=== PATIENT | female | born 1960 | race Caucasian/White ===

== ENCOUNTER 2016-09-19 15:49 | Observation (INO) | payer BC, OTHER ==
[~2016-09-19] VITALS: Ht 160 cm; Wt 81.9 kg
[2016-09-19] VITALS (7 sets, daily range): BP systolic 142–205; BP diastolic 79–118; PULSE 62–72; RESP 17–20; TEMP 98.2–98.5; O2SAT 97–100
[~2016-09-19 15:49] MED LIST: CEFT500T PO; CLON.5 PO; FERRF325 PO; FIORCAP6 PO; GLUC2.5T7 PO; LORT7.5T3 PO; PRIN10TA PO; TOPI200 PO
[2016-09-19] MEDS ORDERED: BUTA1CAP2 PO (16:15)
[2016-09-19] MEDS ORDERED: CLON.5 PO (16:15)
[2016-09-19] MEDS ORDERED: TOPI1TAB31 PO (16:15)
[2016-09-19] MEDS ORDERED: METF1000 PO (16:15)
[2016-09-19] MEDS ORDERED: ASPI81CH CHEW (16:15)
[2016-09-19] MEDS ORDERED: ATEN25TA PO (16:15)
[2016-09-19] MEDS ORDERED: PRIS100T PO (16:15)
[2016-09-19] MEDS ORDERED: NAPR500T PO (16:15)
--- NOTE | 2016-09-19 16:21 | PD ---
HPI Chief Complaint: Chest Pain Time Seen by Provider: 16:09 Travel History International Travel<30 days: No Contact w/Intl Traveler<30days: No Traveled to known affect area: No History of Present Illness HPI This patient complains of chest pain. Location is center sternum. There was some radiation toward both left and right shoulder. She had chest pain yesterday that she ignored. She had further chest pain today and decided to come here for evaluation. She is currently pain-free. No shortness of breath or fever or cough or chest wall injury. She denies personal history of cardiac disease. She had a stress test many years ago that was negative. Symptoms severity is moderate. No alleviating factors. Duration is 2 days PFSH Past Medical History Asthma: Yes (15 YEARS) Anxiety: Yes Diabetes: Yes Patient Takes Glucophage: Yes Diminished Hearing: No Genitourinary: No Hypertension: Yes (MILD HYPERTENSION 10 YEARS) Musculoskeletal: No Reproductive: Yes (ABNORMAL THICKENING OF ENDOMETRIUM) Migraines: Yes Tetanus Vaccination: > 5 Years Influenza Vaccination: No ?: Not Past Surgical History Section: Yes (X 2) Cholecystectomy: Yes Eye Surgery: Yes (CORNEAL SURGERY?) Genitourinary Surgery: Yes (CHOLECSTECOMY 1991) Gynecologic Surgery: Yes (2 SECTION 1985 AND 1987) Hysterectomy: Yes Social History Alcohol Use: No Tobacco Use: No Substance Use: No Allergies-Medications (Allergen,Severity, Reaction): Coded Allergies: Metformin (Verified Allergy, Intermediate, 09/19/16) Zithromax (Verified Allergy, Mild, 09/19/16) Reported Meds & Prescriptions Reported Meds & Active Scripts Active Reported Fioricet-Codeine (Bosizvtkfp-Fnndtfashaafw-Qwmqpzxv-Codeine) 50-481-83-30 Mg Cap 1-2 Cap PO Q4H PRN Do not exceed 6 capsules/day. Aspirin 81 Mg Chew 325 Mg CHEW DAILY Pristiq 24 HR (Desvenlafaxine ER 24 HR) 100 Mg Tab 100 Mg PO DAILY Naproxen 500 Mg Tab 500 Mg PO BID Klonopin (Clonazepam) 0.5 Mg Tab 0.5 Mg PO DIRECTED PRN Topiramate 100 Mg Tab 100 Mg PO BID Atenolol 25 Mg Tab 1.5 Tab PO DAILY Metformin (Metformin HCl) 1,000 Mg Tab 1,000 Mg PO DAILY With a meal Review of Systems General / Constitutional: No: Fever Eyes: No: Visual changes HENT: No: Headaches Cardiovascular: Positive: Chest Pain or Discomfort Respiratory: No: Shortness of Breath Gastrointestinal: No: Abdominal Pain Genitourinary: No: Dysuria Musculoskeletal: No: Pain Skin: No Rash Neurologic: No: Weakness Psychiatric: No: Depression Endocrine: No: Polydipsia Hematologic/Lymphatic: No: Easy Bruising Physical Exam Narrative GENERAL: Well-nourished, well-developed patient in no apparent distress. SKIN: Warm and dry. HEAD: Atraumatic. Normocephalic. EYES: Pupils equal and round. No scleral icterus. No injection or drainage. ENT: No nasal bleeding or discharge. Mucous membranes pink and moist. NECK: Trachea midline. No JVD. CARDIOVASCULAR: Regular rate and rhythm. No murmur appreciated. RESPIRATORY: No accessory muscle use. Clear to auscultation. Breath sounds equal bilaterally. GASTROINTESTINAL: Abdomen soft, non-tender, nondistended. Hepatic and splenic margins not palpable. MUSCULOSKELETAL: No obvious deformities. No clubbing. No cyanosis. No edema. NEUROLOGICAL: Awake and alert. No obvious cranial nerve deficits. Motor grossly within normal limits. Normal speech. PSYCHIATRIC: Appropriate mood and affect; insight and judgment normal. Data Data Last Documented VS Vital Signs Date Time Temp Pulse Resp B/P Pulse Ox O2 Delivery O2 Flow Rate FiO2 09/19/16 16:29 63 17 169/92 97 Room Air 09/19/16 16:07 98.5 Orders Basic Metabolic Panel (Bmp) (09/19/16 16:18) Ckmb (Isoenzyme) Profile (09/19/16 16:18) Complete Blood Count With Diff (09/19/16 16:18) Prothrombin Time / Inr (Pt) (09/19/16 16:18) Act Partial Throm Time (Ptt) (09/19/16 16:18) Troponin I (09/19/16 16:18) Chest, Single Ap (09/19/16 16:18) Ecg Monitoring (09/19/16 16:18) Iv Access Insert/Monitor (09/19/16 16:18) Oximetry (09/19/16 16:18) Sodium Chloride 0.9% Flush (Ns Flush) (09/19/16 16:30) Clonidine (Catapres) (09/19/16 16:30) Admit Order (Ed Use Only) (09/19/16 17:18) Labs Laboratory Tests Test 09/19/16 16:20 White Blood Count 6.6 TH/MM3 Red Blood Count 4.74 MIL/MM3 Hemoglobin 13.6 GM/DL Hematocrit 41.1 % Mean Corpuscular Volume 86.6 FL Mean Corpuscular Hemoglobin 28.8 PG Mean Corpuscular Hemoglobin 33.2 % Concent Red Cell Distribution Width 13.3 % Platelet Count 308 TH/MM3 Mean Platelet Volume 6.8 FL Neutrophils (%) (Auto) 74.8 % Lymphocytes (%) (Auto) 16.8 % Monocytes (%) (Auto) 7.6 % Eosinophils (%) (Auto) 0.6 % Basophils (%) (Auto) 0.2 % Neutrophils # (Auto) 5.0 TH/MM3 Lymphocytes # (Auto) 1.1 TH/MM3 Monocytes # (Auto) 0.5 TH/MM3 Eosinophils # (Auto) 0.0 TH/MM3 Basophils # (Auto) 0.0 TH/MM3 CBC Comment DIFF FINAL Differential Comment Prothrombin Time 10.0 SEC Prothromb Time International 0.9 RATIO Ratio Activated Partial 25.4 SEC Thromboplast Time Sodium Level 144 MEQ/L Potassium Level 3.4 MEQ/L Chloride Level 107 MEQ/L Carbon Dioxide Level 27.2 MEQ/L Anion Gap 10 MEQ/L Blood Urea Nitrogen 16 MG/DL Creatinine 0.69 MG/DL Estimat Glomerular Filtration 88 ML/MIN Rate Random Glucose 210 MG/DL Calcium Level 8.8 MG/DL Total Creatine Kinase 40 U/L Troponin I LESS THAN 0.02 NG/ML MDM Medical Decision Making Medical Screen Exam Complete: Yes Emergency Medical Condition: Yes Medical Record Reviewed: Yes Differential Diagnosis Differential diagnosis includes IL, angina, pericarditis, pleurisy, GERD, anxiety. Narrative Course I have reviewed the patient's electronic medical record. IV placed I reviewed the EKG which shows sinus rhythm but no ST elevation or ectopy I reviewed the chest x-ray which is normal Extended cardiac monitoring shows sinus rhythm without ectopy CBC is normal Metabolic profile is normal CK is normal Troponin is normal Coagulation studies are normal She took an aspirin prior to arrival Blood pressure is accelerated at 212 systolic so I gave her dose of clonidine and will reassess. Blood pressure recheck 169 systolic Patient is multiple risk factors and will be a 23 hour observation in the chest pain center to rule out cardiac cause of her symptoms. Call has been placed to hospitalist to discuss Diagnosis Primary Impression: Precordial chest pain Admitting Information Admitting Physician Requests: Observation Gene Farmer MD Sep 19, 2016 16:21
[2016-09-19] MEDS ORDERED: SODIUM CHLORIDE 0.9% FLUSH 5 ML FLUSH IVF PRN ×2 (16:30→17:45)
[2016-09-19] MEDS ORDERED: cloNIDine HCL 0.2 MG TAB PO ONE (16:30)
[2016-09-19 16:47] LABS: BASOPHIL % 0.2 % (0.0-2.0); EOSINOPHIL % 0.6 % (0.0-4.0); HEMATOCRIT 41.1 % (35.0-46.0); HEMO FLAGS DIFF FINAL; LYMPH % 16.8 % (9.0-44.0); LYMPHOCYTE # 1.1 TH/MM3 (1.0-4.8); MEAN CELL VOLUME 86.6 FL (80.0-100.0); MEAN CORPUSCULAR HEMOGLOBIN 28.8 PG (27.0-34.0); MEAN CORPUSCULAR HGB CONC 33.2 % (32.0-36.0); MONO % 7.6 % (0.0-8.0); NEUT % 74.8 % (16.0-70.0); PLATELET COUNT 308 TH/MM3 (150-450); RED BLOOD COUNT 4.74 MIL/MM3 (4.00-5.30); RED CELL DISTRIBUTION WIDTH 13.3 % (11.6-17.2); WHITE BLOOD COUNT 6.6 TH/MM3 (4.0-11.0)
--- NOTE | 2016-09-19 16:49 | RADHPO ---
EXAM DATE/TIME: 09/19/2016 16:37 [facility] COMPARISON: No previous studies available for comparison. INDICATIONS : Chest pain. MEDICAL HISTORY : None. SURGICAL HISTORY : None. ENCOUNTER: Initial ACUITY: 2 days PAIN SCORE: 8/10 LOCATION: Bilateral chest FINDINGS: A single view of the chest demonstrates the lungs to be symmetrically aerated without evidence of mas s, infiltrate or effusion. The cardiomediastinal contours are unremarkable. Osseous structures are intact. CONCLUSION: No acute disease. Ramiro Cottrell MD on September 19, 2016 at 16:47 Board Certified Radiologist. This report was verified electronically.
[2016-09-19 16:54] LABS: CHLORIDE 107 MEQ/L (98-107); POTASSIUM 3.4 MEQ/L (3.5-5.1); SODIUM (NA) 144 MEQ/L (136-145)
[2016-09-19 16:57] LABS: ANION GAP 10 MEQ/L (5-15); BICARBONATE 27.2 MEQ/L (21.0-32.0); BLOOD UREA NITROGEN 16 MG/DL (7-18)
[2016-09-19 16:58] LABS: APTT (PATIENT) 25.4 SEC (24.3-30.1); INTERNATIONAL NORMALIZED RATIO 0.9 RATIO
[2016-09-19 17:00] LABS: GLOMERULAR FILTRATION RATE 88 ML/MIN (>89)
[2016-09-19 17:12] LABS: CREATINE KINASE 40 U/L (26-192)
[2016-09-19] MEDS ORDERED: NITROGLYCERIN 0.4 MG SL 25 TABS/BTL SL PRN (17:45)
[2016-09-19] MEDS ORDERED: cloNIDine HCL 0.1 MG TAB PO PRN (18:00)
[2016-09-19] MEDS ORDERED: GLUCAGON 1 MG/ML VIAL OTHER PRN (18:00)
[2016-09-19] MEDS ORDERED: DEXTROSE 50% IN WATER 50 ML VIAL(D50) IV PUSH PRN (18:00)
[2016-09-19] MEDS: TOPIRAMATE 100 MG TAB PO SCH (20:41)
[2016-09-19] MEDS: SODIUM CHLORIDE 0.9% FLUSH 5 ML FLUSH IVF SCH (20:44)
[2016-09-19] MEDS: INSULIN ASPART SUPPLEMENTAL SCALE SQ SCH (20:44)
[2016-09-20] VITALS: BP 148/89; PULSE 54; RESP 20; TEMP 97.8; O2SAT 99
[2016-09-20 04:00] VITALS: BP 157/87; PULSE 60; RESP 20; TEMP 96.8; O2SAT 97
[2016-09-20] MEDS: INSULIN ASPART SUPPLEMENTAL SCALE SQ SCH ×3 (06:47→16:00)
--- NOTE | 2016-09-20 06:49 | HHI.HP ---
[facility] Service [facility] Primary Care Physician No Primary Care Physician Admission Diagnosis chest pain Diagnoses: (1) Chest pain Diagnosis: Principal (2) Accelerated hypertension Diagnosis: Principal (3) Diabetes Diagnosis: Secondary Chief Complaint: Chest pain Travel History International Travel<30 Days: No Contact w/Intl Traveler <30 Da: No Traveled to Known Affected Are: No History of Present Illness 56-year-old female with known history of hypertension, diabetes, migraine cephalgia, anxiety who presented to the hospital because of chest pain. Patient states that the pain is been intermittent for the last 3 days. She indicates that whenever she exerts herself she develops a pain in the mid part of her chest radiating into the left shoulder with associated diaphoresis. She denies any nausea, vomiting, shortness of breath, dyspnea. She states the pain lasted for probably 5 minutes and resolved on its own whenever she rests. She describes the pain as a 7/10 on a pain scale. At the present time she is asymptomatic. Patient was evaluated in emergency department and found to have accelerated hypertension with blood pressure 205/118. Patient given clonidine with improvement of her blood pressure. Patient recommended observation chest pain center Review of Systems Constitutional: COMPLAINS OF: Diaphoretic episodes, DENIES: Fatigue, Fever, Weight gain, Weight loss, Chills, Dizziness, Change in appetite, Night Sweats Eyes: DENIES: Blurred vision, Diplopia, Eye inflammation, Eye pain, Vision loss , Double Vision Ears, nose, mouth, throat: DENIES: Vertigo, Nasal discharge, Throat pain, Ear Pain, Running Nose, Sinus Pain Respiratory: DENIES: Apneas, Cough, Snoring, Wheezing, Hemoptysis, Sputum production, Shortness of breath Cardiovascular: COMPLAINS OF: Chest pain, DENIES: Palpitations, Syncope, Dyspnea on Exertion, Lower Extremity Edema, Orthopnea Gastrointestinal: DENIES: Abdominal pain, Black stools, Bloody stools, Constipation, Diarrhea, Nausea, Vomiting, Difficulty Swallowing, Anorexia Neurologic: DENIES: Abnormal gait, Headache, Localized weakness, Paresthesias, Seizures, Speech Problems, Tremor, Poor Balance Psychiatric: COMPLAINS OF: Anxiety, DENIES: Confusion, Mood changes, Depression, Hallucinations, Agitation, Suicidal Ideation, Homicidal Ideation Past Family Social History Past Medical History Hypertension Hyperlipidemia Diabetes Migraine Anxiety, panic attacks Past Surgical History Corneal surgery Cholecystectomy Partial hysterectomy Reported Medications Reported Meds & Active Scripts Active Reported Fioricet-Codeine (Ghtepuinyk-Zkrndxjlofgfn-Nlqtzfgb-Codeine) 68-405-58-30 Mg Cap 1-2 Cap PO Q4H PRN Do not exceed 6 capsules/day. Aspirin 81 Mg Chew 325 Mg CHEW DAILY Pristiq 24 HR (Desvenlafaxine ER 24 HR) 100 Mg Tab 100 Mg PO DAILY Naproxen 500 Mg Tab 500 Mg PO BID Klonopin (Clonazepam) 0.5 Mg Tab 0.5 Mg PO DIRECTED PRN Topiramate 100 Mg Tab 100 Mg PO BID Atenolol 25 Mg Tab 1.5 Tab PO DAILY Metformin (Metformin HCl) 1,000 Mg Tab 1,000 Mg PO DAILY With a meal Allergies: Coded Allergies: Metformin (Verified Allergy, Intermediate, 09/19/16) Zithromax (Verified Allergy, Mild, 09/19/16) Family History Reviewed and unremarkable Social History Patient denies any tobacco, alcohol or illicit drugs Physical Exam Vital Signs Vital Signs Date Time Temp Pulse Resp B/P Pulse Ox O2 Delivery O2 Flow Rate FiO2 09/20/16 04:00 96.8 60 20 157/87 97 09/20/16 00:00 97.8 54 20 148/89 99 09/19/16 23:20 97 21 09/19/16 20:00 62 09/19/16 20:00 98.2 63 20 142/87 97 09/19/16 17:54 98 21 09/19/16 17:34 62 17 160/79 100 Room Air 09/19/16 16:29 63 17 169/92 97 Room Air 09/19/16 16:25 100 Room Air 09/19/16 16:07 98.5 72 17 205/118 98 Room Air 09/19/16 16:07 Room Air Physical Exam GENERAL: Well-developed, well-nourished, in no acute distress. alert and orientated HEENT: Head is normocephalic without any lesions or masses noted. Facial features are symmetric. Eyes: Pupils equal round reactive to light. Extraocular muscles are intact. Conjunctivae were clear. Oropharyngeal: Pharynx without any erythema edema. Tongue is midline without deviation. Buccal mucosa is moist without any masses or lesions NECK: Supple without any masses. Trachea midline no deviation. No JVD, no bruits are appreciated CARDIAC: Regular rhythm, regular rate. S1/S2 are heard. No murmurs gallops or rubs. LUNGS: Clear to auscultation bilaterally. No wheeze, rhonchi or rales. No use of accessory muscles on inspiration or expiration. ABDOMEN: Soft, nontender. Nondistended. Bowel sounds heard in all 4 quadrants. No organomegaly or masses. Negative rebound, negative guarding EXTREMITIES: No edema, pulses are equal bilaterally. No cyanosis or clubbing NEUROLOGY: Mood and affect appear appropriate. Cranial nerves II through XII grossly intact. Muscle strength 5/5 in upper and lower extremities bilaterally. Deep tendon reflexes are 2+ in upper and lower extremities bilaterally. Laboratory Laboratory Tests Test 09/19/16 09/19/16 09/20/16 16:20 20:30 02:15 White Blood Count 6.6 Red Blood Count 4.74 Hemoglobin 13.6 Hematocrit 41.1 Mean Corpuscular Volume 86.6 Mean Corpuscular Hemoglobin 28.8 Mean Corpuscular Hemoglobin 33.2 Concent Red Cell Distribution Width 13.3 Platelet Count 308 Mean Platelet Volume 6.8 Neutrophils (%) (Auto) 74.8 Lymphocytes (%) (Auto) 16.8 Monocytes (%) (Auto) 7.6 Eosinophils (%) (Auto) 0.6 Basophils (%) (Auto) 0.2 Neutrophils # (Auto) 5.0 Lymphocytes # (Auto) 1.1 Monocytes # (Auto) 0.5 Eosinophils # (Auto) 0.0 Basophils # (Auto) 0.0 CBC Comment DIFF FINAL Differential Comment Prothrombin Time 10.0 Prothromb Time International 0.9 Ratio Activated Partial 25.4 Thromboplast Time Sodium Level 144 Potassium Level 3.4 Chloride Level 107 Carbon Dioxide Level 27.2 Anion Gap 10 Blood Urea Nitrogen 16 Creatinine 0.69 Estimat Glomerular Filtration 88 Rate Random Glucose 210 Calcium Level 8.8 Total Creatine Kinase 40 32 34 Troponin I LESS THAN 0.02 0.02 0.02 Result Diagram: 09/19/16 1620 09/19/16 1620 Imaging Last Impressions Chest X-Ray 09/19/16 1618 Signed Impressions: Service Date/Time: Monday, September 19, 2016 16:37 - CONCLUSION: No acute disease. Ramiro Cottrell MD Assessment and Plan Assessment and Plan Chest pain Patient with increased risk factors to include age, hypertension, hypokalemia, diabetes Serial cardiac enzymes were performed and reviewed by myself, patient has been ruled out for any acute coronary event Serial EKGs have been performed and reviewed by myself, no changes noted Exercise stress test was performed, however, she has not able to perform until completion. She only was able to do 83% of goal. Nuclear stress test was performed which was negative for any underlying ischemia Continue aspirin and nitroglycerin as needed Accelerated hypertension Resume home medication atenolol 25 mg 1.5 tablets daily Clonidine as needed Diabetes Metformin been held at this time Accu-Cheks with sliding scale insulin Anxiety/panic attacks Home medications have been continued Migraine cephalgia Topamax and Fioricet have been continued DVT prevention Low risk, early ambulation Written by Gene Jimenez PA-C, acting as scribe for Dr. Tripathi on 09/20/2016 at 1050. The documentation accurately reflects the work and decisions performed face-to- face by Dr. Tripathi on 09/20/2016 at 1050. Discharge disposition Discharge home in stable condition if stress test is negative Activity: Ad beck. Diet: Healthy heart diet/diabetic diet Medications per medication reconciliation Follow-up with primary medical doctor in one week Problem Qualifiers (1) Chest pain: Qualified Code: R07.9 - Chest pain, unspecified type (2) Diabetes: Qualified Code: E11.8 - Type 2 diabetes mellitus with complication, without long-term current use of insulin Gene Jimenez Sep 20, 2016 06:49
[2016-09-20 08:00] VITALS: BP 169/98; PULSE 76; RESP 18; TEMP 97; O2SAT 99
[2016-09-20 08:05] VITALS: PULSE 59
[2016-09-20 08:38] VITALS: BP 156/92; PULSE 59; RESP 16; TEMP 98.2; O2SAT 97
[2016-09-20] MEDS ORDERED: ATENOLOL 25 MG TAB PO SCH (09:00)
[2016-09-20] MEDS ORDERED: ASPIRIN EC 325 MG TABEC PO SCH (09:00)
--- NOTE | 2016-09-20 09:48 | TR ---
Date Performed: 09/20/2016 Time Performed: 09:03:17 DOCTOR: Kaley Deras DRUG LIST: CLINICAL HISTORY: CHEST PAIN REASON FOR TEST: Angina REASON FOR ENDING: Fatigue/Weakness OBSERVATION: Chest Pain: Limiting CONCLUSION: Patient coulod not tolerate GODWIN protocol, had to reduce speed near end of testing, patient could not continue to completion, because of weakness, fatigue. Total Exercise Time=7:00 Max imum HK=259 % Max HR Achieved=82.0 Maximum XL=188/92 During exercise portion of testing, patient did have some chest pain, no signs of ischemia during pain. patient had quick upsloping ST segments.recov art period, patient was asymptomatic, HR and BP returned to baseline COMMENTS:
[2016-09-20] MEDS ORDERED: PNEUMOCOCCAL POLYVALENT INJ 25 MCG/0.5 ML SYR IM ONE (10:00)
[2016-09-20] MEDS ORDERED: INFLUENZA VIRUS VACCINE (QUADRIVALENT) 0.5 ML SYR IM ONE (10:00)
[2016-09-20] MEDS: TOPIRAMATE 100 MG TAB PO SCH (11:38)
[2016-09-20] MEDS: SODIUM CHLORIDE 0.9% FLUSH 5 ML FLUSH IVF SCH (11:39)
[2016-09-20] MEDS ORDERED: DESVENLAFAXINE 100 MG PO SCH ×2 (12:15)
--- NOTE | 2016-09-20 13:26 | EKG ---
Date Performed: 09/20/2016 Time Performed: 06:25:16 PTAGE: 56 years EKG: Sinus bradycardia Poor R wave progression - probable normal variant Lateral T wave changes are nonspecific Since previous tracing, no significant change noted Borderline ECG PREVIOUS TRACING : 09/19/2016 20.02 DOCTOR: Kaley Deras Interpretating Date/Time 09/20/2016 13:25:14
--- NOTE | 2016-09-20 13:28 | EKG ---
Date Performed: 09/19/2016 Time Performed: 20:02:24 PTAGE: 56 years EKG: Sinus rhythm Possible anterior infarct - age undetermined Lateral ST-T changes are nonspecific Abnormal ECG Since PREVIOUS TRACING , no significant change noted PREVIOUS TRACIN09/19/2016 16.00 DOCTOR: Kaley Deras Interpretating Date/Time 09/20/2016 13:27:42
--- NOTE | 2016-09-20 13:29 | EKG ---
Date Performed: 09/19/2016 Time Performed: 16:00:40 PTAGE: 56 years EKG: Sinus rhythm ST junctional depression is nonspecific Borderline ECG NO PREVIOUS TRACING DOCTOR: Kaley Deras Interpretating Date/Time 09/20/2016 13:28:00
[2016-09-20] MEDS ORDERED: ACETAMIN 325 MG/BUTALBITAL 50 MG/CAFFEINE 40 MG TAB PO PRN (13:30)
[2016-09-20] MEDS ORDERED: CODEINE SULFATE 30 MG TAB PO PRN (13:30)
[2016-09-20] MEDS ORDERED: REGADENOSON INJ 0.4 MG/5 ML SYR IV ONE (13:52)
[2016-09-20 14:07] VITALS: BP 144/84; PULSE 83; RESP 16; TEMP 97.9; O2SAT 98
[2016-09-20] MEDS ORDERED: LORazepam 2 MG/ML VIAL IV PUSH ONE (14:15)
--- NOTE | 2016-09-20 15:08 | RADHPO ---
EXAM DATE/TIME: 09/20/2016 13:57 [facility] COMPARISON: No previous studies available for comparison. INDICATIONS : Substernal chest pain radiating to left arm with diaphoresis. Angina. Unable to walk on treadmill. DOSE: 25.4 mCi Tc99m Myoview at stress. 8.5 mCi Tc99m Myoview at rest. 0.4 mg Lexiscan STRESS SYMPTOMS: Chest pressure, headache, stomach pressure and dyspnea. EJECTION FRACTION: 60% MEDICAL HISTORY : Hypertension. Diabetes mellitus type 2. SURGICAL HISTORY : Hysterectomy. Cholecystectomy. ENCOUNTER: Initial ACUITY: 3 days PAIN SCALE: 6/10 LOCATION: Substernal chest TECHNIQUE: The patient underwent pharmacologic stress with infusion of prescribed dose. Continuous ECG tracing was monitored during stress. Gated SPECT imaging was performed after stress and conventional SPECT i maging was performed at rest. The examination was performed on a SPECT/CT scanner, both attenuation and non-corrected datasets were reviewed. FINDINGS: DISTRIBUTION: The maximum perfused segment at stress is in the septal wall. PERFUSION STUDY: The pattern of perfusion at stress is within normal limits. GATED STUDY: There is intact wall motion and thickening without hypokinetic or dyskinetic segments. CONCLUSION: 1. Unremarkable myocardial perfusion scan. RISK CATEGORY: Low (<1% Annual Mortality Rate) Farhat Guzman MD on September 20, 2016 at 15:06 Board Certified Radiologist. This report was verified electronically.
--- NOTE | 2016-09-20 15:31 | HHI.DCPOC ---
Discharge Care Plan Diagnosis: (1) Chest pain (2) Accelerated hypertension Your Health Problems Are: Chest Pain Goals to Promote Your Health * To prevent worsening of your condition and complications * To maintain your health at the optimal level Directions to Meet Your Goals Take your medications as prescribed Follow your dietary instruction Follow activity as directed Keep your appointments as scheduled Take your immunizations and boosters as scheduled If your symptoms worsen call your PCP, if no PCP go to Urgent Care Center or Emergency Room Smoking is Dangerous to Your Health. Avoid second hand smoke Call the 24-hour hour crisis hotline for domestic abuse at Gene Jimenez Sep 20, 2016 15:31
--- NOTE | 2016-09-22 16:06 | TR ---
Date Performed: 09/20/2016 Time Performed: 14:07:03 DOCTOR: Kaley Deras DRUG LIST: CLINICAL HISTORY: CHEST PAIN CHEST PAIN REASON FOR TEST: Chest pain. REASON FOR ENDING: OBSERVATION: CONCLUSION: Lexiscan stress test was performed under standard four minute protocol. Radionuclid e was injected one minute prior to ending the test. No electrocardiographic abormalities were present to suggest ischemia. Nuclear imaging and interpretation are pending. COMMENTS:
== END 2016-09-20 17:36 | disposition home or self-care (01) ==
LOC: PHED 15:49 → PHEDA 17:18 → PH3A 18:17
PROVIDERS: ADMIT Family Medicine; ATTEND Family Medicine
DX: R07.2 Precordial pain (principal); E11.9 Type 2 diabetes mellitus without complications; J45.909 Unspecified asthma, uncomplicated; I10 Essential (primary) hypertension; G43.909 Migraine, unspecified, not intractable, without status migrainosus; Z79.899 Other long term (current) drug therapy; Z79.84 Long term (current) use of oral hypoglycemic drugs; R61 Generalized hyperhidrosis; E78.5 Hyperlipidemia, unspecified; Z23 Encounter for immunization
CPT/HCPCS: 71010; 78452; 80048; 82550; 82948; 84484; 85025; 85610; 85730; 90471; 90686; 90732; 93005; 93017; 99285; A9502; G0378; J1815; J2060; J2785; G0008; G0009; Q2038

== ENCOUNTER 2017-09-06 13:59 | Emergency (ER) | payer BC ==
[~2017-09-06] VITALS: Ht 160 cm; Wt 78.6 kg
[~2017-09-06 13:59] MED LIST changes: +ASPI-516 CHEW; +ATEN25TA PO; +BUTA1CAP2 PO; -CEFT500T PO; -FERRF325 PO; -FIORCAP6 PO; -GLUC2.5T7 PO; -LORT7.5T3 PO; +METF1000 PO; +NAPR500T2 PO; -PRIN10TA PO; +PRIS100T PO; +TOPI1TAB31 PO; -TOPI200 PO
[2017-09-06 14:10] VITALS: BP 196/97; PULSE 61; RESP 16; TEMP 98.6; O2SAT 97
--- NOTE | 2017-09-06 14:23 | PD ---
HPI Chief Complaint: Flank/Kidney Pain Time Seen by Provider: 14:13 Travel History International Travel<30 days: No Contact w/Intl Traveler<30days: No Traveled to known affect area: No History of Present Illness HPI The patient was seen and examined in the presence of the nurse. This patient complains of right sided pain with nausea and vomiting. Duration 24 hours. She noticed blood in her urine. No fever. No injury. Symptoms severity is moderate. No alleviating factors. No exacerbating factors. She has no uterus or gallbladder. PFSH Past Medical History Asthma: Yes (15 YEARS) Anxiety: Yes Cancer: No Cardiovascular Problems: Yes Diabetes: Yes Patient Takes Glucophage: Yes (1800 LAST NIGHT (09/05/17)) Diminished Hearing: No Endocrine: Yes Genitourinary: No Hypertension: Yes (MILD HYPERTENSION 10 YEARS) Musculoskeletal: No Neurologic: Yes Psychiatric: Yes Reproductive: Yes (ABNORMAL THICKENING OF ENDOMETRIUM) Respiratory: Yes Migraines: Yes Past Surgical History Section: Yes (X 2) Cholecystectomy: Yes Eye Surgery: Yes (CORNEAL SURGERY?) Genitourinary Surgery: Yes (CHOLECSTECOMY 1991) Gynecologic Surgery: Yes (2 SECTION 1985 AND 1987) Hysterectomy: Yes (PARTIAL) Other Surgery: Yes Social History Alcohol Use: No Tobacco Use: No Substance Use: No Allergies-Medications (Allergen,Severity, Reaction): Coded Allergies: metformin (Unverified Allergy, Intermediate, 04/17/17) azithromycin (Verified Allergy, Mild, 09/06/17) Reported Meds & Prescriptions Reported Meds & Active Scripts Active Reported Topiramate ER (Topiramate) 100 Mg Cap 100 Mg PO DAILY Fiorinal-Codeine #3 (Imosnzqwty-Bebbtkp-Ptzloitn-Codeine) 18-810-19-30 Mg Cap 1- 2 Cap PO Q4H PRN Do not exceed 6 capsules/day. Ativan (Lorazepam) 1 Mg Tab 1 Mg PO DAILY PRN Pristiq 24 HR (Desvenlafaxine ER 24 HR) 100 Mg Tab 100 Mg PO DAILY Naproxen 500 Mg Tab 500 Mg PO BID Atenolol 25 Mg Tab 1.5 Tab PO DAILY Metformin (Metformin HCl) 1,000 Mg Tab 1,000 Mg PO DAILY With a meal Review of Systems General / Constitutional: No: Fever Eyes: No: Visual changes HENT: No: Headaches Cardiovascular: No: Chest Pain or Discomfort Respiratory: No: Shortness of Breath Gastrointestinal: Positive: Nausea, Vomiting, Abdominal Pain Genitourinary: Positive: Hematuria, Flank Pain, No: Dysuria Musculoskeletal: No: Pain Skin: No Rash Neurologic: No: Weakness Psychiatric: No: Depression Endocrine: No: Polydipsia Hematologic/Lymphatic: No: Easy Bruising Physical Exam Narrative GENERAL: Well-nourished, well-developed patient with right flank pain SKIN: Focused skin assessment reveals no rash and nodules. Skin is Warm and dry. HEAD: Atraumatic. Normocephalic. EYES: Pupils equal and round. No scleral icterus. No injection or drainage. ENT: No nasal bleeding or discharge. Mucous membranes pink and moist. NECK: Trachea midline. No JVD. CARDIOVASCULAR: Regular rate and rhythm. No murmur appreciated. RESPIRATORY: No accessory muscle use. Clear to auscultation. Breath sounds equal bilaterally. GASTROINTESTINAL: Abdomen soft, non-tender, nondistended. Hepatic and splenic margins not palpable. Obturator and psoas signs are negative MUSCULOSKELETAL: No obvious deformities. No clubbing. No cyanosis. No edema. NEUROLOGICAL: Awake and alert. No obvious cranial nerve deficits. Motor grossly within normal limits. Normal speech. PSYCHIATRIC: Appropriate mood and affect; insight and judgment normal. Data Data Last Documented VS Vital Signs Date Time Temp Pulse Resp B/P (MAP) Pulse Ox O2 Delivery O2 Flow Rate FiO2 09/06/17 14:10 98.6 61 16 196/97 (130) 97 Orders Orders Basic Metabolic Panel (Bmp) (09/06/17 14:19) Complete Blood Count With Diff (09/06/17 14:19) Urinalysis - C+S If Indicated (09/06/17 14:19) Iv Access Insert/Monitor (09/06/17 14:19) NPO (09/06/17 14:19) Ondansetron Inj (Zofran Inj) (09/06/17 14:30) Sodium Chloride 0.9% Flush (Ns Flush) (09/06/17 14:30) Ct Abd/Pel W/O Iv Contrast (09/06/17 14:24) Urine Culture (09/06/17 14:35) Morphine Inj (Morphine Inj) (09/06/17 15:30) Labs Laboratory Tests Test 1/4/18 14:35 White Blood Count 10.2 TH/MM3 Red Blood Count 5.03 MIL/MM3 Hemoglobin 14.4 GM/DL Hematocrit 44.0 % Mean Corpuscular Volume 87.5 FL Mean Corpuscular Hemoglobin 28.7 PG Mean Corpuscular Hemoglobin Concent 32.8 % Red Cell Distribution Width 12.6 % Platelet Count 305 TH/MM3 Mean Platelet Volume 6.9 FL Neutrophils (%) (Auto) 88.5 % Lymphocytes (%) (Auto) 7.1 % Monocytes (%) (Auto) 4.0 % Eosinophils (%) (Auto) 0.2 % Basophils (%) (Auto) 0.2 % Neutrophils # (Auto) 9.1 TH/MM3 Lymphocytes # (Auto) 0.7 TH/MM3 Monocytes # (Auto) 0.4 TH/MM3 Eosinophils # (Auto) 0.0 TH/MM3 Basophils # (Auto) 0.0 TH/MM3 CBC Comment DIFF FINAL Differential Comment Urine Collection Type CLEAN CATCH Urine Color YELLOW Urine Turbidity SLIGHTY CLOUDY Urine pH 5.5 Urine Specific [place] 1.028 Urine Protein 30 mg/dL Urine Glucose (UA) NEG mg/dL Urine Ketones TRACE mg/dL Urine Occult Blood LARGE Urine Nitrite NEG Urine Bilirubin NEG Urine Leukocyte Esterase NEG Urine RBC 50-99 /hpf Urine WBC 3-5 /hpf Urine Squamous Epithelial Cells 0-5 /hpf Urine Bacteria MOD /hpf Urine Yeast (Budding) MOD Microscopic Urinalysis Comment CULTURE INDICATED Blood Urea Nitrogen 24 MG/DL Creatinine 0.97 MG/DL Random Glucose 193 MG/DL Calcium Level 8.8 MG/DL Sodium Level 141 MEQ/L Potassium Level 4.0 MEQ/L Chloride Level 106 MEQ/L Carbon Dioxide Level 24.7 MEQ/L Anion Gap 10 MEQ/L Estimat Glomerular Filtration Rate 59 ML/MIN [facility] Medical Decision Making Medical Screen Exam Complete: Yes Emergency Medical Condition: Yes Medical Record Reviewed: Yes Differential Diagnosis Kidney stone, pyelonephritis, appendicitis Narrative Course I have reviewed the patient's electronic medical record. IV placed I gave her dose of Zofran and morphine for symptom relief CBC is normal Metabolic profile is normal Urinalysis shows hematuria without pyuria CT of abdomen and pelvis shows 5 mm right sided stone with hydronephrosis which would explain her pain. Other numerous tiny nonobstructive stones are noted Patient receives prescription for Percocet and Zofran for symptom relief as well as Flomax Will follow-up with urology Stable for outpatient follow-up Diagnosis Primary Impression: Kidney stone on right side Additional Instructions: The patient was advised to follow up with urologist and return if they worsen. The patient was warned about potential sedation for the medications they will receive on prescription. Med/Other Pt SpecificInfo: Prescription(s) given Scripts Ondansetron (Zofran) 4 Mg Tab 4 MG PO Q6HR Y for NAUSEA OR VOMITING, #15 TAB 0 Refills Prov: Gene Farmer MD 09/06/17 Oxycodone-Acetaminophen (Percocet) 5-325 mg Tab 1 TAB PO Q6H Y for PAIN, #25 TAB 0 Refills Prov: Gene Farmer MD 09/06/17 Tamsulosin (Flomax) 0.4 Mg Cap 0.4 MG PO HS for Manage Prostate Problems, #10 CAP 0 Refills Prov: Gene Farmer MD 09/06/17 Disposition: 01 DISCHARGE HOME Condition: Stable Gene Farmer MD Sep 06, 2017 14:23
[2017-09-06] MEDS ORDERED: LORA-474 PO (14:26)
[2017-09-06] MEDS ORDERED: FIOR30CA12 PO (14:26)
[2017-09-06] MEDS ORDERED: TOPI1CAP22 PO (14:26)
[2017-09-06] MEDS ORDERED: MORPHINE SULFATE 4 MG/ML INJ IV PUSH ONE ×2 (14:30)
[2017-09-06] MEDS ORDERED: ONDANSETRON HCL 4 MG/2 ML VIAL IVP ONE (14:30)
[2017-09-06] MEDS ORDERED: SODIUM CHLORIDE 0.9% FLUSH 10 ML FLUSH IV FLUSH PRN (14:30)
[2017-09-06 15:00] LABS: BILIRUBIN, URINE NEG (NEG); BLOOD, URINE LARGE (NEG); GLUCOSE,URINE NEG (NEG); KETONE, URINE TRACE mg/dL (NEG); NITRITE,URINE NEG (NEG); PH, URINE 5.5 (5.0-8.5); URINE LEUKOCYTE ESTERASE NEG (NEG)
[2017-09-06 15:04] LABS: AUTOMATED NEUTROPHIL # 9.1 TH/MM3 (1.8-7.7); BASOPHIL % 0.2 % (0.0-2.0); EOSINOPHIL % 0.2 % (0.0-4.0); HEMOGLOBIN 14.4 GM/DL (11.6-15.3); LYMPH % 7.1 % (9.0-44.0); LYMPHOCYTE # 0.7 TH/MM3 (1.0-4.8); MEAN CELL VOLUME 87.5 FL (80.0-100.0); MEAN CORPUSCULAR HEMOGLOBIN 28.7 PG (27.0-34.0); MEAN CORPUSCULAR HGB CONC 32.8 % (32.0-36.0); MEAN PLATELET VOLUME 6.9 FL (7.0-11.0); MONOCYTE # 0.4 TH/MM3 (0-0.9); NEUT % 88.5 % (16.0-70.0); PLATELET COUNT 305 TH/MM3 (150-450); RED BLOOD COUNT 5.03 MIL/MM3 (4.00-5.30); RED CELL DISTRIBUTION WIDTH 12.6 % (11.6-17.2); WHITE BLOOD COUNT 10.2 TH/MM3 (4.0-11.0)
[2017-09-06 15:07] LABS: URINE COLOR YELLOW (YELLW/STRAW)
[2017-09-06 15:08] LABS: BACTERIA, URINE MOD /hpf; SQUAMOUS EPITHELIAL CELL URINE 0-5 /hpf (0-5)
--- NOTE | 2017-09-06 15:13 | RADRPT ---
EXAM DATE/TIME: 09/06/2017 14:48 [facility] COMPARISON: No previous studies available for comparison. INDICATIONS : Right flank and right lower quadrant pain. Nausea and vomiting. Hematuria. ORAL CONTRAST: No oral contrast ingested. RADIATION DOSE: 21.68 CTDIvol (mGy) MEDICAL HISTORY : Diabetes mellitus type 2. Cardiovascular disease Hypertension.Asthma. SURGICAL HISTORY : section. Cholecystectomy.Hysterectomy. ENCOUNTER: Initial ACUITY: 1 day PAIN SCALE: 7/10 LOCATION: Right flank TECHNIQUE: Volumetric scanning of the abdomen and pelvis was performed. Using automated exposure control and adjustment of the mA and/or kV according to patient size, radiation dose was kept as low as reasonably achievable to obtain optimal diagnostic quality images. DICOM format image data is av ailable electronically for review and comparison. FINDINGS: CT Abdomen: The liver, spleen, pancreas, adrenals are unremarkable. There are 2 small 4-5 mm stones i n the left kidney without hydronephrosis in addition to a couple of tiny 1-2 mm stones as well. Ther e is an approximate 5 mm right proximal ureteral stone causing moderate hydronephrosis in right kidne y with 4 may be 5 separate tiny 2 mm stones in the right kidney as well. Forniceal rupture is identif ied. There is no evidence for any appreciable pathological adenopathy, free fluid, or bowel obstructi on. CT pelvis: There is no evidence for mass, abscess formation, or any significant adenopathy within the pelvis. CONCLUSION: There is moderate hydronephrosis in right kidney due to an approximate 5 mm right pro ximal ureteral stone and there are additional stones in both kidneys. Nalini Rivera MD on September 06, 2017 at 15:01 Board Certified Radiologist. This report was verified electronically.
[2017-09-06 15:21] LABS: CALCIUM 8.8 MG/DL (8.5-10.1)
[2017-09-06 15:22] LABS: BICARBONATE 24.7 MEQ/L (21.0-32.0)
[2017-09-06 15:25] VITALS: BP 199/92; PULSE 58; RESP 16; O2SAT 98
[2017-09-06 15:25] LABS: CREATININE 0.97 MG/DL (0.50-1.00)
[2017-09-06] MEDS ORDERED: MORPHINE SULFATE 2 MG/ML INJ IV PUSH ONE (15:30)
[2017-09-06] MEDS ORDERED: ZOFR4TAB PO (15:32)
[2017-09-06] MEDS ORDERED: TAMS5CAP PO (15:32)
[2017-09-06] MEDS ORDERED: PERC5TAB12 PO (15:32)
[2017-09-06 15:34] VITALS: BP 177/94; PULSE 61; RESP 16; O2SAT 93
== END 2017-09-06 16:19 | disposition home or self-care (01) ==
LOC: PHED 13:59
DX: N13.2 Hydronephrosis with renal and ureteral calculous obstruction (principal); E11.9 Type 2 diabetes mellitus without complications; I10 Essential (primary) hypertension; J45.909 Unspecified asthma, uncomplicated; R82.99 Other abnormal findings in urine; Z79.84 Long term (current) use of oral hypoglycemic drugs
CPT/HCPCS: 74176; 80048; 81001; 85025; 87086; 96374; 96375; 99285; J2270; J2405

== ENCOUNTER 2017-09-09 18:14 | Inpatient (IN) | payer BC ==
[~2017-09-09] VITALS: Ht 160 cm; Wt 79.0 kg
[~2017-09-09 18:14] MED LIST changes: -ASPI-516 CHEW; -BUTA1CAP2 PO; -CLON.5 PO; +FIOR30CA12 PO; +LORA-474 PO; +PERC5TAB12 PO; +TAMS5CAP PO; +TOPI1CAP22 PO; -TOPI1TAB31 PO; +ZOFR4TAB PO
[2017-09-09 18:20] VITALS: BP 198/90; PULSE 66; RESP 16; TEMP 98.7; O2SAT 95
[2017-09-09] MEDS ORDERED: METF-382 PO (18:42)
[2017-09-09 18:57] VITALS: BP 157/83; PULSE 79; RESP 18; O2SAT 96
[2017-09-09] MEDS ORDERED: MORPHINE SULFATE 2 MG/ML INJ IV PUSH ONE (19:00)
[2017-09-09] MEDS ORDERED: SODIUM CHLOR 0.9% 1000 ML INJ 1,000 ML IV ONE (19:00)
[2017-09-09] MEDS ORDERED: KETOROLAC TROMETHAMINE 30 MG/ML (IVP) VIAL IV PUSH ONE (19:00)
[2017-09-09 19:04] LABS: AUTOMATED NEUTROPHIL # 6.1 TH/MM3 (1.8-7.7); BASOPHIL % 0.6 % (0.0-2.0); EOSINOPHIL # 0.1 TH/MM3 (0-0.4); EOSINOPHIL % 1.7 % (0.0-4.0); HEMATOCRIT 40.7 % (35.0-46.0); HEMOGLOBIN 12.8 GM/DL (11.6-15.3); LYMPH % 16.3 % (9.0-44.0); LYMPHOCYTE # 1.3 TH/MM3 (1.0-4.8); MEAN CELL VOLUME 88.2 FL (80.0-100.0); MEAN CORPUSCULAR HEMOGLOBIN 27.7 PG (27.0-34.0); MEAN CORPUSCULAR HGB CONC 31.4 % (32.0-36.0); MEAN PLATELET VOLUME 6.8 FL (7.0-11.0); MONO % 6.6 % (0.0-8.0); MONOCYTE # 0.5 TH/MM3 (0-0.9); NEUT % 74.8 % (16.0-70.0); PLATELET COUNT 285 TH/MM3 (150-450); RED BLOOD COUNT 4.61 MIL/MM3 (4.00-5.30); RED CELL DISTRIBUTION WIDTH 13.1 % (11.6-17.2)
[2017-09-09 19:07] LABS: BILIRUBIN, URINE NEG (NEG); BLOOD, URINE LARGE (NEG); GLUCOSE,URINE NEG (NEG); KETONE, URINE 15 mg/dL (NEG); NITRITE,URINE NEG (NEG); URINE LEUKOCYTE ESTERASE MOD (NEG)
[2017-09-09 19:17] LABS: BICARBONATE 26.2 MEQ/L (21.0-32.0); CALCIUM 8.7 MG/DL (8.5-10.1)
[2017-09-09 19:19] LABS: URINE COLOR YELLOW (YELLW/STRAW)
[2017-09-09 19:20] LABS: BACTERIA, URINE MOD /hpf; SQUAMOUS EPITHELIAL CELL URINE > 8 /hpf (0-5)
[2017-09-09 19:21] LABS: CREATININE 1.2 MG/DL (0.50-1.00)
[2017-09-09] MEDS ORDERED: SODIUM CHLOR 0.9% 1000 ML INJ 1,000 ML IV SCH (19:39)
[2017-09-09] MEDS ORDERED: ONDANSETRON HCL 4 MG/2 ML VIAL IVP PRN (19:45)
[2017-09-09] MEDS ORDERED: MAGNESIUM HYDROXIDE SUSP 30 ML CUP PO PRN (19:45)
[2017-09-09] MEDS ORDERED: SENNOSIDES 8.6 MG TAB PO PRN (19:45)
[2017-09-09] MEDS ORDERED: ACETAMINOPHEN/HYDROcodone 325 MG/5 MG TAB PO PRN (19:45)
[2017-09-09] MEDS ORDERED: TAMSULOSIN HCL 0.4 MG CAP PO SCH ×2 (19:45)
[2017-09-09] MEDS ORDERED: LACTULOSE SYRUP 20 GM/30 ML CUP PO PRN (19:45)
[2017-09-09] MEDS ORDERED: BISACODYL 10 MG SUPP RECTAL PRN (19:45)
[2017-09-09] MEDS ORDERED: DEXTROSE 50% IN WATER 50 ML VIAL(D50) IV PUSH PRN (19:45)
[2017-09-09] MEDS ORDERED: MORPHINE SULFATE 2 MG/ML INJ IV PUSH PRN (19:45)
[2017-09-09] MEDS ORDERED: ASPIRIN 325 MG/CAFFEINE 40 MG/BUTALBITAL 50 MG CAP PO PRN (19:45)
[2017-09-09] MEDS ORDERED: ACETAMINOPHEN 325 MG TAB PO PRN (19:45)
[2017-09-09] MEDS ORDERED: GLUCAGON 1 MG/ML VIAL OTHER PRN (19:45)
[2017-09-09] MEDS ORDERED: SODIUM CHLORIDE 0.9% FLUSH 10 ML FLUSH IV FLUSH PRN (19:45)
[2017-09-09] MEDS ORDERED: cefTRIAXone INJ 1,000 MG in SODIUM CHLORIDE 0.9% INJ 100 ML IV SCH (20:00)
[2017-09-09] MEDS ORDERED: CODEINE SULFATE 30 MG TAB PO PRN (20:15)
[2017-09-09] MEDS ORDERED: ZOFR4TAB3 SL (20:42)
[2017-09-09] MEDS ORDERED: PERC5TAB12 PO (20:42)
--- NOTE | 2017-09-09 20:42 | PD ---
HPI Chief Complaint: Flank/Kidney Pain Time Seen by Provider: 18:31 Travel History International Travel<30 days: No Contact w/Intl Traveler<30days: No Traveled to known affect area: No History of Present Illness HPI This is a 57-year-old female who presents to the emergency department with right sided flank pain that's been going on for 4 days, constant, moderate severity, radiating into the right lower abdomen associated with nausea and one episode of vomiting. She was diagnosed with a 5 mm kidney stone in the proximal ureter on the right on CT scan 4 days ago. She's been taking Percocet and Zofran but she's not feeling better so she return to the emergency department. She's been unable to get into an outpatient urologist. PFSH Past Medical History Asthma: Yes (15 YEARS) Anxiety: Yes Cancer: No Cardiovascular Problems: Yes (HTN) Diabetes: Yes Patient Takes Glucophage: Yes Diminished Hearing: No Endocrine: Yes Genitourinary: No Hypertension: Yes (MILD HYPERTENSION 10 YEARS) Musculoskeletal: No Neurologic: Yes Psychiatric: Yes Reproductive: Yes (ABNORMAL THICKENING OF ENDOMETRIUM) Respiratory: Yes Migraines: Yes Past Surgical History Section: Yes (X 2) Cholecystectomy: Yes Eye Surgery: Yes (CORNEAL SURGERY?) Genitourinary Surgery: Yes (CHOLECSTECOMY 1991) Gynecologic Surgery: Yes (2 SECTION 1985 AND 1987) Hysterectomy: Yes (PARTIAL) Other Surgery: Yes Social History Alcohol Use: No Tobacco Use: No Substance Use: No Allergies-Medications (Allergen,Severity, Reaction): Coded Allergies: metformin (Unverified Allergy, Intermediate, 09/09/17) azithromycin (Verified Allergy, Mild, 09/09/17) Reported Meds & Prescriptions Reported Meds & Active Scripts Active Zofran (Ondansetron HCl) 4 Mg Tab 4 Mg PO Q6HR PRN Percocet (Oxycodone-Acetaminophen) 5-325 mg Tab 1 Tab PO Q6H PRN Flomax (Tamsulosin HCl) 0.4 Mg Cap 0.4 Mg PO HS Reported Metformin ER (Metformin HCl) 1,000 Mg Mechelle 1,000 Mg PO DAILY With evening meal Fiorinal-Codeine #3 (Cqbyosymio-Rpnyxxa-Gvqteotc-Codeine) 81-105-08-30 Mg Cap 1- 2 Cap PO Q4H PRN Do not exceed 6 capsules/day. Ativan (Lorazepam) 1 Mg Tab 1 Mg PO DAILY PRN Pristiq 24 HR (Desvenlafaxine ER 24 HR) 100 Mg Tab 100 Mg PO DAILY Naproxen 500 Mg Tab 500 Mg PO BID Atenolol 25 Mg Tab 1.5 Tab PO DAILY Review of Systems Except as stated in HPI: all other systems reviewed are Neg Physical Exam Narrative GENERAL:Well appearing, no acute distress SKIN: Focused skin assessment warm and dry. HEAD: Atraumatic. Normocephalic. EYES: Pupils equal and round. No injection or drainage. ENT: Moist mucous membranes NECK: Trachea midline. CARDIOVASCULAR: Regular rate and rhythm. No murmur appreciated. RESPIRATORY: Clear to auscultation. Breath sounds equal bilaterally. GASTROINTESTINAL: Abdomen soft, tender to palpation in the right lower quadrant with no rebound or guarding. : Right CVA tenderness. MUSCULOSKELETAL: No obvious deformities. NEUROLOGICAL: Awake and alert. No obvious cranial nerve deficits. Moving all extremities. PSYCHIATRIC: Appropriate mood and affect; insight and judgment normal. Data Data Last Documented VS Vital Signs Date Time Temp Pulse Resp B/P (MAP) Pulse Ox O2 Delivery O2 Flow Rate FiO2 09/09/17 18:57 79 18 157/83 (107) 96 Room Air 09/09/17 18:20 98.7 Orders Orders Complete Blood Count With Diff (09/09/17 18:46) Urinalysis - C+S If Indicated (09/09/17 18:46) Basic Metabolic Panel (Bmp) (09/09/17 18:46) ^ Insert Iv (09/09/17 18:46) Sodium Chlor 0.9% 1000 Ml Inj (Ns 1000 M (09/09/17 19:00) Ketorolac Inj (Toradol Inj) (09/09/17 19:00) Morphine Inj (Morphine Inj) (09/09/17 19:00) Urine Culture (09/09/17 18:52) Admit Order (Ed Use Only) (09/09/17 19:42) Labs Laboratory Tests Test 09/09/17 18:52 White Blood Count 8.0 TH/MM3 Red Blood Count 4.61 MIL/MM3 Hemoglobin 12.8 GM/DL Hematocrit 40.7 % Mean Corpuscular Volume 88.2 FL Mean Corpuscular Hemoglobin 27.7 PG Mean Corpuscular Hemoglobin Concent 31.4 % Red Cell Distribution Width 13.1 % Platelet Count 285 TH/MM3 Mean Platelet Volume 6.8 FL Neutrophils (%) (Auto) 74.8 % Lymphocytes (%) (Auto) 16.3 % Monocytes (%) (Auto) 6.6 % Eosinophils (%) (Auto) 1.7 % Basophils (%) (Auto) 0.6 % Neutrophils # (Auto) 6.1 TH/MM3 Lymphocytes # (Auto) 1.3 TH/MM3 Monocytes # (Auto) 0.5 TH/MM3 Eosinophils # (Auto) 0.1 TH/MM3 Basophils # (Auto) 0.0 TH/MM3 CBC Comment DIFF FINAL Differential Comment Urine Color YELLOW Urine Turbidity MOD Urine pH 6.0 Urine Specific [place] 1.017 Urine Protein 30 mg/dL Urine Glucose (UA) NEG mg/dL Urine Ketones 15 mg/dL Urine Occult Blood LARGE Urine Nitrite NEG Urine Bilirubin NEG Urine Leukocyte Esterase MOD Urine RBC 25-49 /hpf Urine WBC 20-24 /hpf Urine Squamous Epithelial Cells > 8 /hpf Urine Bacteria MOD /hpf Microscopic Urinalysis Comment CULTURE INDICATED Blood Urea Nitrogen 19 MG/DL Creatinine 1.20 MG/DL Random Glucose 213 MG/DL Calcium Level 8.7 MG/DL Sodium Level 139 MEQ/L Potassium Level 3.8 MEQ/L Chloride Level 105 MEQ/L Carbon Dioxide Level 26.2 MEQ/L Anion Gap 8 MEQ/L Estimat Glomerular Filtration Rate 46 ML/MIN [facility] Medical Decision Making Medical Screen Exam Complete: Yes Emergency Medical Condition: Yes Interpretation(s) Afebrile, no tachycardia, hypertensive No leukocytosis Mild renal insufficiency Urinalysis demonstrates some white blood cells and red blood cells but is contaminated. Prior urine culture was negative. Differential Diagnosis Nephrolithiasis, pyelonephritis, obstructive uropathy Narrative Course This is a 57-year-old female who presents to the emergency department with persistent right flank pain in the setting of a known kidney stone. Her kidney stone is 5 mm and is obstructing on the right. Labs were obtained which were reassuring. Urinalysis is contaminated with squamous epithelial cells and prior urine culture was negative. She was given Toradol and IV fluids and her pain is improved. I discussed the patient with urology and was planning to admit the patient for possible intervention. I think we had some confusion in our communication. The patient said she did not want to be admitted and wanted to avoid any procedures is possible. She just wanted to make sure her pain would be under control because she hasn't yet been able to follow-up with a urologist. Patient will be prescribed continue pain control and antiemetics and was encouraged to follow-up as an outpatient. Diagnosis Primary Impression: Nephrolithiasis Patient Instructions: General Instructions Additional Instructions: If you develop severe pain, inability to eat or drink, or fever return to the emergency department. Use a strainer to try to catch your stone. Take percocet as needed for pain, and continue taking zofran as needed for nausea. Complete your course of tamsulosin. Follow up with urology as soon as possible. Med/Other Pt SpecificInfo: Prescription(s) given Scripts Ondansetron Odt (Zofran Odt) 4 Mg Tab 4 MG SL Q6HR Y for Nausea/Vomiting, #15 TAB 0 Refills Prov: Melissa Baker MD 09/09/17 Oxycodone-Acetaminophen (Percocet) 5-325 mg Tab 1-2 TAB PO Q6H Y for PAIN, #15 TAB 0 Refills Prov: Melissa Baker MD 09/09/17 Disposition: 01 DISCHARGE HOME Condition: Stable Melissa Baker MD Sep 09, 2017 20:42
[2017-09-09] MEDS ORDERED: SODIUM CHLORIDE 0.9% FLUSH 10 ML FLUSH IV FLUSH SCH (21:00)
[2017-09-09] MEDS ORDERED: DOCUSATE SODIUM 50 MG/SENNA 8.6 MG TAB PO SCH (21:00)
[2017-09-09] MEDS ORDERED: INSULIN ASPART SUPPLEMENTAL SCALE SQ SCH (21:00)
[2017-09-09 21:05] VITALS: BP 138/75; PULSE 86; RESP 16; O2SAT 96
== END 2017-09-09 21:16 | disposition home or self-care (01) | DRG 694 ==
LOC: PHED 18:14 → PHEDA 19:43
PROVIDERS: ADMIT Hospitalist; ATTEND Hospitalist
DX: N20.2 Calculus of kidney with calculus of ureter (principal); I10 Essential (primary) hypertension; J45.909 Unspecified asthma, uncomplicated; E11.9 Type 2 diabetes mellitus without complications; F41.9 Anxiety disorder, unspecified; Z79.84 Long term (current) use of oral hypoglycemic drugs; R82.99 Other abnormal findings in urine
CPT/HCPCS: 80048; 81001; 85025; 87086; 96361; 96374; 96375; J1885; J2270; J7030

== ENCOUNTER 2017-12-05 15:21 | Emergency (ER) | payer BC ==
[~2017-12-05] VITALS: Ht 160 cm; Wt 80.0 kg
[~2017-12-05 15:21] MED LIST changes: +METF-382 PO; -METF1000 PO; -TOPI1CAP22 PO; +ZOFR4TAB3 SL
[2017-12-05 15:26] VITALS: BP 242/110; PULSE 80; RESP 16; TEMP 98.8; O2SAT 98
[2017-12-05 15:52] LABS: BILIRUBIN, URINE NEG (NEG); BLOOD, URINE LARGE (NEG); GLUCOSE,URINE 500 mg/dL (NEG); KETONE, URINE NEG (NEG); NITRITE,URINE NEG (NEG); URINE COLOR YELLOW (YELLW/STRAW); URINE LEUKOCYTE ESTERASE NEG (NEG)
[2017-12-05 16:04] LABS: RBC, URINE INNUM /hpf (0-3)
[2017-12-05 16:05] LABS: BACTERIA, URINE MANY /hpf; SQUAMOUS EPITHELIAL CELL URINE 0-5 /hpf (0-5)
[2017-12-05] MEDS ORDERED: SODIUM CHLOR 0.9% 1000 ML INJ 1,000 ML IV ONE ×2 (16:16→17:45)
[2017-12-05] MEDS ORDERED: SODIUM CHLORIDE 0.9% FLUSH 10 ML FLUSH IVF PRN (16:30)
[2017-12-05] MEDS ORDERED: MORPHINE SULFATE 4 MG/ML INJ IV PUSH ONE ×2 (16:30→17:15)
[2017-12-05] MEDS ORDERED: ONDANSETRON HCL 4 MG/2 ML VIAL IM ONE (16:30)
[2017-12-05] MEDS ORDERED: ONDANSETRON HCL 4 MG/2 ML VIAL IV PUSH ONE (17:00)
[2017-12-05] MEDS ORDERED: cefTRIAXone INJ 1,000 MG in SODIUM CHLORIDE 0.9% INJ 100 ML IV ONE (17:00)
[2017-12-05 17:04] LABS: AUTOMATED NEUTROPHIL # 6.5 TH/MM3 (1.8-7.7); BASOPHIL % 0.3 % (0.0-2.0); EOSINOPHIL # 0.1 TH/MM3 (0-0.4); EOSINOPHIL % 1.5 % (0.0-4.0); HEMATOCRIT 39.8 % (35.0-46.0); HEMOGLOBIN 12.9 GM/DL (11.6-15.3); LYMPH % 12.5 % (9.0-44.0); MEAN CELL VOLUME 87.1 FL (80.0-100.0); MEAN CORPUSCULAR HEMOGLOBIN 28.3 PG (27.0-34.0); MEAN CORPUSCULAR HGB CONC 32.5 % (32.0-36.0); MEAN PLATELET VOLUME 6.7 FL (7.0-11.0); MONO % 6.3 % (0.0-8.0); MONOCYTE # 0.5 TH/MM3 (0-0.9); NEUT % 79.4 % (16.0-70.0); PLATELET COUNT 322 TH/MM3 (150-450); RED BLOOD COUNT 4.57 MIL/MM3 (4.00-5.30); RED CELL DISTRIBUTION WIDTH 13.8 % (11.6-17.2); WHITE BLOOD COUNT 8.1 TH/MM3 (4.0-11.0)
[2017-12-05 17:19] LABS: BICARBONATE 27.3 MEQ/L (21.0-32.0); CALCIUM 8.6 MG/DL (8.5-10.1)
[2017-12-05 17:23] LABS: CREATININE 1.5 MG/DL (0.50-1.00)
--- NOTE | 2017-12-05 17:32 | RADRPT ---
EXAM DATE/TIME: 12/05/2017 16:57 [facility] COMPARISON: CT ABDOMEN & PELVIS W/O CONTRAST, September 06, 2017, 14:48. INDICATIONS : Left flank pain. ORAL CONTRAST: No oral contrast ingested. RADIATION DOSE: 24.49 CTDIvol (mGy) ; High dose protocol MEDICAL HISTORY : Hypertension. Renal calculi. SURGICAL HISTORY : Cholecystectomy. Hysterectomy. section. ENCOUNTER: Initial ACUITY: 1 day PAIN SCALE: 7/10 LOCATION: Left flank abdomen TECHNIQUE: Renal colic protocol. Volumetric scanning of the abdomen and pelvis was performed. Using automated exposure control and adjustment of the mA and/or kV according to patient size, radiation dose was kep t as low as reasonably achievable to obtain optimal diagnostic quality images. DICOM format image da ta is available electronically for review and comparison. FINDINGS: Right side: No evidence of hydronephrosis. Normal size of the right kidney. Multiple scattered less than 4 mm c alcified stones in the collecting system of the upper and lower pole. No calcifications along the co urse of the right ureter. Left side: Abnormal. The left kidney is markedly enlarged and there is thickening of the cortex and prominent i nduration of the fat in the perinephric space. There is moderate dilation of the collecting system o f the kidney and the extrarenal pelvis. There is a obstructing 5 mm calcified stone in the junction of the extrarenal pelvis and the ureter. There are multiple retroperitoneal calcified phleboliths wh ich are located outside the course of the left year. There are multiple small calcified stones colle cted in one calyx of the lower pole of the left kidney which measure in aggregate 4 mm. Bladder: Smooth margins. No calcifications within the lumen. Other: No dilated loops of small large bowel. No evidence of free fluid. CONCLUSION: 1. Obstructive uropathy on the left side due to a 5 mm obstructing stone at the junction of the extra renal pelvis and left ureter. There is a significant enlargement of the left kidney, perinephric str anding and mild hydronephrosis. There are additional small stones in the lower pole collecting syste m. 2. Multiple small nonobstructing stones on the right side. Ti Schneider MD on December 05, 2017 at 17:25 Board Certified Radiologist. This report was verified electronically.
--- NOTE | 2017-12-05 17:34 | PD ---
HPI Chief Complaint: Flank/Kidney Pain Time Seen by Provider: 15:55 Travel History International Travel<30 days: No Contact w/Intl Traveler<30days: No Traveled to known affect area: No History of Present Illness HPI 57-year-old female came to the emergency room with history of left flank pain that started this afternoon. Patient has history of kidney stone. Her last episode of renal colic was September of this year. She saw Dr. Lara and lithotripsy was done. Patient started having some pain 2 weeks ago. She went to see the urologist about a week ago when an ultrasound was done. The ultrasound as per the urologist to the patient had kidney stones but no ureteral stones. Patient had seen the urologist again today but after she went home the pain started again. Pain is on the left flank radiating down to the left lower quadrant. No aggravating or relieving factors identified. Currently she rates the pain 8 out of 10. No nausea vomiting. Patient does have hematuria. Vital signs were relatively stable. PFSH Past Medical History Narrative Medical List of her past medical, surgical, social and family history is reviewed from the nursing note. Asthma: Yes Anxiety: Yes Cancer: No Cardiovascular Problems: Yes (HTN) Diabetes: Yes Patient Takes Glucophage: Yes ([id number]) Diminished Hearing: No Endocrine: Yes Genitourinary: No Hypertension: Yes Musculoskeletal: No Neurologic: Yes Psychiatric: Yes Reproductive: Yes (ABNORMAL THICKENING OF ENDOMETRIUM) Respiratory: Yes Immunizations Current: Yes Migraines: Yes Tetanus Vaccination: > 5 Years Influenza Vaccination: Yes ?: Not Past Surgical History Section: Yes (X 2) Cholecystectomy: Yes Eye Surgery: Yes (CORNEAL SURGERY?) Genitourinary Surgery: Yes (CHOLECSTECOMY 1991) Gynecologic Surgery: Yes (2 SECTION 1985 AND 1987) Hysterectomy: Yes (PARTIAL) Other Surgery: Yes Social History Alcohol Use: No Tobacco Use: No Substance Use: No Allergies-Medications (Allergen,Severity, Reaction): Coded Allergies: metformin (Unverified Allergy, Intermediate, 12/05/17) azithromycin (Verified Allergy, Mild, 12/05/17) Comments List of her allergies reviewed from the nursing note. Reported Meds & Prescriptions Reported Meds & Active Scripts Active Macrobid (Nitrofurantoin Monoh/Nitrofur Macro) 100 Mg Cap 100 Mg PO BID 10 Days Zofran (Ondansetron HCl) 4 Mg Tab 4 Mg PO Q6HR PRN Percocet (Oxycodone-Acetaminophen) 5-325 mg Tab 1-2 Tab PO Q6H PRN Zofran Odt (Ondansetron Odt) 4 Mg Tab 4 Mg SL Q6HR PRN Flomax (Tamsulosin HCl) 0.4 Mg Cap 0.4 Mg PO HS Reported Metformin ER (Metformin HCl) 1,000 Mg Mechelle 1,000 Mg PO DAILY With evening meal Fiorinal-Codeine #3 (Qucaxsfexa-Kqayawi-Uhjzgvnm-Codeine) [id number] Mg Cap 1- 2 Cap PO Q4H PRN Do not exceed 6 capsules/day. Ativan (Lorazepam) 1 Mg Tab 1 Mg PO DAILY PRN Pristiq 24 HR (Desvenlafaxine ER 24 HR) 100 Mg Tab 100 Mg PO DAILY Naproxen 500 Mg Tab 500 Mg PO BID Atenolol 25 Mg Tab 1.5 Tab PO DAILY Narrative Medication List of her home medications reviewed from the nursing note. Review of Systems Except as stated in HPI: all other systems reviewed are Neg Genitourinary: Positive: Hematuria, Flank Pain Physical Exam Narrative GENERAL: Awake, alert, moderate distress SKIN: Focused skin assessment warm/dry. HEAD: Atraumatic. Normocephalic. EYES: Pupils equal and round. No scleral icterus. No injection or drainage. ENT: No nasal bleeding or discharge. Mucous membranes pink and moist. NECK: Trachea midline. No JVD. CARDIOVASCULAR: Regular rate and rhythm. No murmur appreciated. RESPIRATORY: No accessory muscle use. Clear to auscultation. Breath sounds equal bilaterally. GASTROINTESTINAL: Abdomen soft, non-tender, nondistended. Hepatic and splenic margins not palpable. MUSCULOSKELETAL: No obvious deformities. No clubbing. No cyanosis. No edema. NEUROLOGICAL: Awake and alert. No obvious cranial nerve deficits. Motor grossly within normal limits. Normal speech. PSYCHIATRIC: Appropriate mood and affect; insight and judgment normal. Data Data Last Documented VS Vital Signs Date Time Temp Pulse Resp B/P (MAP) Pulse Ox O2 Delivery O2 Flow Rate FiO2 12/05/17 19:03 98.4 85 16 175/85 (115) 100 Orders Orders Urinalysis - C+S If Indicated (12/05/17 15:33) Urine Culture (12/05/17 15:45) Complete Blood Count With Diff (12/05/17 16:16) Basic Metabolic Panel (Bmp) (12/05/17 16:16) Ct Abd/Pel W/O Iv Contrast (12/05/17 16:16) Ecg Monitoring (12/05/17 16:16) Iv Access Insert/Monitor (12/05/17 16:16) Morphine Inj (Morphine Inj) (12/05/17 16:30) Sodium Chloride 0.9% Flush (Ns Flush) (12/05/17 16:30) Sodium Chlor 0.9% 1000 Ml Inj (Ns 1000 M (12/05/17 16:16) Ondansetron Inj (Zofran Inj) (12/05/17 16:30) Ondansetron Inj (Zofran Inj) (12/05/17 17:00) Ceftriaxone Inj (Rocephin Inj) (12/05/17 17:00) Blood Culture (12/05/17 16:51) Morphine Inj (Morphine Inj) (12/05/17 17:15) Sodium Chlor 0.9% 1000 Ml Inj (Ns 1000 M (12/05/17 17:45) Ed Discharge Order (12/05/17 18:21) Labs Laboratory Tests Test 12/05/17 15:45 12/05/17 16:54 Urine Collection Type CLEAN CATCH Urine Color YELLOW Urine Turbidity CLOUDY Urine pH 5.0 Urine Specific [place] GREATER/EQUAL 1.030 Urine Protein 30 mg/dL Urine Glucose (UA) 500 mg/dL Urine Ketones NEG mg/dL Urine Occult Blood LARGE Urine Nitrite NEG Urine Bilirubin NEG Urine Urobilinogen 0.2 MG/DL Urine Leukocyte Esterase NEG Urine RBC INNUM /hpf Urine WBC 20-24 /hpf Urine Squamous Epithelial Cells 0-5 /hpf Urine Bacteria MANY /hpf Microscopic Urinalysis Comment CULTURE INDICATED White Blood Count 8.1 TH/MM3 Red Blood Count 4.57 MIL/MM3 Hemoglobin 12.9 GM/DL Hematocrit 39.8 % Mean Corpuscular Volume 87.1 FL Mean Corpuscular Hemoglobin 28.3 PG Mean Corpuscular Hemoglobin Concent 32.5 % Red Cell Distribution Width 13.8 % Platelet Count 322 TH/MM3 Mean Platelet Volume 6.7 FL Neutrophils (%) (Auto) 79.4 % Lymphocytes (%) (Auto) 12.5 % Monocytes (%) (Auto) 6.3 % Eosinophils (%) (Auto) 1.5 % Basophils (%) (Auto) 0.3 % Neutrophils # (Auto) 6.5 TH/MM3 Lymphocytes # (Auto) 1.0 TH/MM3 Monocytes # (Auto) 0.5 TH/MM3 Eosinophils # (Auto) 0.1 TH/MM3 Basophils # (Auto) 0.0 TH/MM3 CBC Comment DIFF FINAL Differential Comment Blood Urea Nitrogen 30 MG/DL Creatinine 1.50 MG/DL Random Glucose 292 MG/DL Calcium Level 8.6 MG/DL Sodium Level 141 MEQ/L Potassium Level 3.8 MEQ/L Chloride Level 107 MEQ/L Carbon Dioxide Level 27.3 MEQ/L Anion Gap 7 MEQ/L Estimat Glomerular Filtration Rate 36 ML/MIN MDM Medical Decision Making Medical Screen Exam Complete: Yes Emergency Medical Condition: Yes Medical Record Reviewed: Yes Differential Diagnosis Ureteral colic, pyelonephritis Narrative Course 5:42 PM blood test results are back and patient's BUN and creatinine is elevated. UA is suggestive of hematuria with pyuria. Patient was medicated for pain 2 and IV fluid bolus [address] has been reported back as 5 mm stone with moderate hydronephrosis and perinephric stranding. I will discuss the case with the film printer. Patient was also given 1 dose of IV Rocephin for possible UTI. 6:22 PM case was discussed with Dr. Luke. As per him patient does not have a fever and since she is not vomiting it should be okay to discharge her home. She needs to follow-up with Dr. Lara tomorrow if possible. I discussed this with the patient and asked her to call her urologist office first thing in the morning tomorrow. Patient is comfortable with this plan. Procedures EKG Prior to Arrival: No Physician Communication Physician Communication Dr. Luke Diagnosis Primary Impression: Ureteral colic Additional Impression: UTI (urinary tract infection) Qualified Codes: N39.0 - Urinary tract infection, site not specified; R31.9 - Hematuria, unspecified Referrals: Cedrick Lara MD 1 day Additional Instructions: Please follow-up with your urologist. Call the office first thing tomorrow morning. Take the medication as per the prescription direction. Return to the ER if condition worsens or any other new concerns. Med/Other Pt SpecificInfo: Prescription(s) given Scripts Nitrofurantoin Monohydrate Macrocrystals (Macrobid) 100 Mg Cap 100 MG PO BID for Infection for 10 Days, #20 CAP 0 Refills Prov: Donavan Flores MD 12/05/17 Ondansetron (Zofran) 4 Mg Tab 4 MG PO Q6HR Y for NAUSEA OR VOMITING, #15 TAB 0 Refills Prov: Donavan Flores MD 12/05/17 Oxycodone-Acetaminophen (Percocet) 5-325 mg Tab 1-2 TAB PO Q6H Y for PAIN, #15 TAB 0 Refills Prov: Donavan Flores MD 12/05/17 Disposition: 01 DISCHARGE HOME Condition: Stable Donavan Flores MD Dec 05, 2017 17:34
[2017-12-05] MEDS ORDERED: MACR100C2 PO (18:25)
[2017-12-05] MEDS ORDERED: ZOFR4TAB PO (18:25)
[2017-12-05] MEDS ORDERED: PERC5TAB12 PO (18:25)
[2017-12-05 19:03] VITALS: BP 175/85; TEMP 98.4
== END 2017-12-05 19:05 | disposition home or self-care (01) ==
LOC: PHED 15:21
DX: N13.2 Hydronephrosis with renal and ureteral calculous obstruction (principal); N39.0 Urinary tract infection, site not specified; J45.909 Unspecified asthma, uncomplicated; F41.9 Anxiety disorder, unspecified; I10 Essential (primary) hypertension; E11.9 Type 2 diabetes mellitus without complications; Z79.899 Other long term (current) drug therapy; Z88.8 Allergy status to other drugs, medicaments and biological substances
CPT/HCPCS: 74176; 80048; 81001; 85025; 87040; 87086; 96361; 96365; 96375; 96376; 99284; J0696; J2270; J2405; J7030